=== PATIENT | male | born 1945 | race Caucasian/White ===

== ENCOUNTER 2024-06-11 12:10 | Outpatient (CLI) | payer OTHER | END 2024-06-11 12:18 | disposition home or self-care (01) | LOC: MRI 12:10 | DX: M25.561 Pain in right knee (principal); M23.306 Other meniscus derangements, unspecified meniscus, right knee | CPT/HCPCS: 73721 ==

== ENCOUNTER 2024-10-02 08:07 | Outpatient (CLI) | payer OTHER | END 2024-10-02 08:17 | disposition home or self-care (01) | LOC: RAD 08:07 | PROVIDERS: ATTEND Physical Medicine & Rehabilitation | DX: M47.27 Other spondylosis with radiculopathy, lumbosacral region (principal); M25.512 Pain in left shoulder | CPT/HCPCS: 72148 ==